=== PATIENT | male | born 1980 | race Caucasian/White ===

== ENCOUNTER 2021-01-28 09:19 | Emergency (ER) | payer OTHER, MEDICAID, SELFPAY ==
[2021-01-28 09:33] VITALS: BP 154/100; PULSE 94; RESP 15; TEMP 36.4; O2SAT 99; BMI 26.7
--- NOTE | 2021-01-28 09:35 | DI.CT.S_ITS ---
PROCEDURE: CT KIDNEY URETER BLADDER (KUB) INDICATIONS: left flank pain TECHNIQUE: Noncontrast 5 mm thick sections acquired from the diaphragms to the symphysis. 5 mm thick coronal and sagittal reformats were then performed. For radiation dose reduction, the following was used: automated exposure control, adjustment of mA and/or kV according to patient size. COMPARISON: None. FINDINGS: Image quality: Excellent. Lung bases: Lung bases are clear. Heart size is normal. Urinary system: There is an obstructing 2 mm stone seen within the left ureteral vesicular junction, as on series 2, image 84 and on series 4 image 37. There is associated moderate left-sided hydroureter and hydronephrosis. Left-sided perinephric fat stranding can be seen. The left kidney appears enlarged. No nonobstructing kidney stones are seen. The right kidney demonstrates normal size. No right-sided hydronephrosis. Both kidneys are normal in size. Bladder wall thickness is normal; no calcified bladder stones. Other solid organs: Liver is normal in size. Gallbladder wall is not thickened. Pancreas is normal in contours. Spleen is normal in size. No adrenal nodules. Peritoneum and bowel: Unenhanced bowel loops demonstrate normal wall thickness and caliber. No free fluid or air. There is a moderate amount of stool seen within the colon. Nodes and vessels: No retroperitoneal or mesenteric adenopathy by size criteria. Aorta and inferior vena cava are normal in caliber. Abdominal wall: No ventral hernias. Pelvis: No free pelvic fluid. No inguinal hernias or adenopathy. Bones: No suspicious bony lesions. No vertebral body compression fractures. IMPRESSION: 2 mm left ureterovesicular junction obstructing stone, with moderate left-sided hydroureter, hydronephrosis, and perinephric fat stranding. The left kidney also appears mildly enlarged. No nonobstructing kidney stones are seen. There is a moderate amount of stool seen within the colon. Please correlate with an underlying history of constipation. Note: Dr. Nielsen was not available to discuss this case at the time of this dictation. Findings relayed to Dr. Nielsen via ER staff, Paulo, at 8:59 a.m. [place] time on January 28, 2021. Dictated by: Arnaldo Shah M.D. on 01/28/2021 at 8:51 Approved by: Belinda BowmanD. on 01/28/2021 at 9:00
--- NOTE | 2021-01-28 09:37 | ED.ABDPAIN ---
HPI - Abdominal Pain General Chief Complaint: Abdominal Pain Stated Complaint: profound pain in left abdomen, started 11pm Time Seen by Provider: 01/28/21 09:22 Source: patient and family History of Present Illness HPI narrative: Patient here with mother. Complaints and onset 11 p.m. left flank left lower abdominal pain with nausea and vomiting. No urinary complaints no hematuria. No chest pain. No neuro complaints. No testicular pain. Pain has been waxing and waning. No pain at this time. No prior history of kidney stone. No prior abdominal surgery Related Data Previous Rx's Medication Instructions Recorded hydrocodone-acetaminophen 1 tab PO Q6H PRN #12 tab 01/28/21 ondansetron 4 mg PO Q8H PRN #10 tab 01/28/21 tamsulosin 0.4 mg PO DAILY #7 cap 01/28/21 Review of Systems Review of Systems Narrative: GENERAL: Denies chills, fatigue, malaise, fever, sweats. HEENT: Denies sinus pain, ear pain, sore throat RESPIRATORY: Denies dyspnea, cough CARDIOVASCULAR: Denies chest pain, palpitations GASTROINTESTINAL: Complains nausea, vomiting, abdominal pain : Denies dysuria, frequency, hematuria MUSCULOSKELETAL: denies muscle or bony pain SKIN: Denies rash, skin lesions NEUROLOGIC: Denies weakness, numbness ROS Unobtainable: All systems reviewed & are unremarkable except as noted in HPI and below Patient History Social History Smoking Status: Never smoker Exam Narrative Exam Narrative: GENERAL: in no distress, not toxic not dyspneic HEAD: Normocephalic. EYES: Pupils equal round No scleral icterus. No injection no discharge ENT: Mucous membranes moist. NECK: Trachea midline. CARDIOVASCULAR: Regular rate and rhythm without murmurs RESPIRATORY: Clear to auscultation. Breath sounds equal bilaterally. No wheezes, rales, or rhonchi. GASTROINTESTINAL: Abdomen soft, non-tender bowel sounds present no peritoneal signs EXTREMITIES: No gross deformities. BACK: No flank tenderness. NEURO: AOx4. SKIN: Warm and dry PSYCH: Not anxious, is cooperative Initial Vital Signs Initial Vital Signs: Vital Signs Temperature 97.6 F 01/28/21 09:33 Pulse Rate 94 H 01/28/21 09:33 Respiratory Rate 15 01/28/21 09:33 Blood Pressure 154/100 H 01/28/21 09:33 Pulse Oximetry 99 01/28/21 09:33 Course Course Course Narrative: No new issues during course of stay. Pain and nausea controlled. Orders Ordered: ED Orders 01/28/21 09:35 CT kidney ureter bladder (KUB) Stat 01/28/21 09:48 Urinalysis and Microscopic Stat 01/28/21 10:00 Complete Blood Count AUTO DIFF Stat Comprehensive Metabolic Panel Stat Sodium Chloride (Normal Saline 0.9%) 1,000 mls @ 1,000 mls/hr IV BOLUS ONE Stop: 01/28/21 11:05 Last Admin: 01/28/21 10:13 Dose: 1,000 mls/hr Documented by: CAROLA Discontinued Medications Ketorolac Tromethamine (Ketorolac 60 Mg/2 Ml Vial) 15 mg IV NOW ONE Stop: 01/28/21 10:03 Last Admin: 01/28/21 10:12 Dose: 15 mg Documented by: CAROLA Ondansetron HCl (Ondansetron 4 Mg/2 Ml Inj) 4 mg IV NOW ONE Stop: 01/28/21 10:07 Last Admin: 01/28/21 10:12 Dose: 4 mg Documented by: CAROLA Tamsulosin HCl (Tamsulosin 0.4 Mg Capsule) 0.4 mg PO NOW ONE Stop: 01/28/21 10:03 Last Admin: 01/28/21 10:12 Dose: 0.4 mg Documented by: CAROLA Reevaluation(s) Reevaluation #1: Blood pressure 133 over radiate. Pain much better. No nausea. Reviewed results with patient. He desires discharge home. Time: 10:33 Vital Signs Vital signs: Vital Signs - 8 hr 01/28/21 09:33 01/28/21 10:30 Temperature 97.6 F Pulse Rate 94 H 67 Respiratory Rate 15 Blood Pressure 154/100 H 133/88 Pulse Oximetry 99 94 MDM - Abdominal Pain Differential Diagnosis Differential diagnosis: Likely calculus of kidney Lab Data Attestation: I reviewed the patient's lab results. Result diagrams: 01/28/21 10:00 01/28/21 10:00 Labs: Lab Results 01/28/21 01/28/21 01/28/21 Range/Units 09:48 10:00 10:00 WBC 11.5 H (4.5-11.0) X10^3/uL RBC 4.32 L (4.5-5.9) X10^6/uL Hgb 13.7 (13.5-17.5) g/dL Hct 40.4 L (41-53) % MCV 93.6 (80-100) fL MCH 31.7 (26-34) PG MCHC 33.9 (30-36) % RDW 12.8 (11.6-14.8) % Plt Count 314 (150-400) X10^3/uL Neut % (Auto) 86.1 H (50-75) % Lymph % (Auto) 7.3 L (25-40) % [place] % (Auto) 6.2 (3-14) % Eos % (Auto) 0.0 L (2-4) % Baso % (Auto) 0.4 (0-2) % Neut # (Auto) 9900 H (7803-0494) /uL Lymph # (Auto) 800 L (8451-6005) /uL [place] # (Auto) 700 (0-900) /uL Eos # (Auto) 0 (0-450) /uL Baso # (Auto) 0 (0-100) /uL Sodium 134 L (137-145) mmol/L Potassium 4.0 (3.4-5.1) mmol/L Chloride 99 (98-107) mmol/L Carbon Dioxide 25 (22-32) mmol/L BUN 17 (9-20) mg/dL Creatinine 1.06 (0.66-1.25) mg/dL Estimated GFR > 60.0 (>60) mL/min BUN/Creatinine Ratio 16.0 (6-22) Glucose 137 H (70-100) mg/dL Calcium 10.4 H (8.4-10.2) mg/dL Total Bilirubin 0.6 (0.2-1.3) mg/dL AST 35 (17-59) IU/L ALT 34 (<50) IU/L Alkaline Phosphatase 45 (38-126) U/L Total Protein 8.0 (6.3-8.2) g/dL Albumin 5.0 (3.5-5.0) g/dL Globulin 3.0 (1.7-4.1) g/dL Albumin/Globulin Ratio 1.7 (1.0-2.8) Urine Color Yellow Urine Appearance Clear Urine pH 7.0 (4.5-8.0) Ur Specific [place] 1.025 (1.000-1.035) Urine Protein Trace H (Negative) Urine Glucose (UA) Negative (Negative) g/dL Urine Ketones Trace H (NEGATIVE) Urine Occult Blood 2+ H (Negative) Urine Nitrate Negative (Negative) Urine Bilirubin Negative (NEGATIVE) Urine Urobilinogen 0.2 (0.2) E.U./dL Ur Leukocyte Esterase Negative (NEGATIVE) Urine RBC 5-10/hpf H (0-5/HPF) Urine WBC 0-1/hpf (0-5/HPF) Ur Squamous Epith Cells 0-1 /hpf (0-5/HPF) Amorphous Sediment 1+ Urine Bacteria None seen (None) Urine Mucus 1+ H (Negative) Ur Culture Indicated? Cult not indicated Imaging Data CT scan - abdomen/pelvis: Radiologist's Impression: [address] [id number] Scan ReportSigned Patient: López Pichardo WMR#: [id number]: [id number]:[id number]/Sex: 40 / MDate of Service: 01/28/21Loc: EDAccession Number: [id number] Procedure: CT kidney ureter bladder (KUB) Ordering Provider: Teto Nielsen MD PROCEDURE: CT KIDNEY URETER BLADDER (KUB) INDICATIONS: left flank pain TECHNIQUE: Noncontrast 5 mm thick sections acquired from the diaphragms to the symphysis. 5 mm thick coronal and sagittal reformats were then performed. For radiation dose reduction, the following was used: automated exposure control, adjustment of mA and/or kV according to patient size. COMPARISON: None. FINDINGS: Image quality: Excellent. Lung bases: Lung bases are clear. Heart size is normal. Urinary system: There is an obstructing 2 mm stone seen within the left ureteral vesicular junction, as on series 2, image 84 and on series 4 image 37. There is associated moderate left-sided hydroureter and hydronephrosis. Left-sided perinephric fat stranding can be seen. The left kidney appears enlarged. No nonobstructing kidney stones are seen. The right kidney demonstrates normal size. No right-sided hydronephrosis. Both kidneys are normal in size. Bladder wall thickness is normal; no calcified bladder stones. Other solid organs: Liver is normal in size. Gallbladder wall is not thickened. Pancreas is normal in contours. Spleen is normal in size. No adrenal nodules. Peritoneum and bowel: Unenhanced bowel loops demonstrate normal wall thickness and caliber. No free fluid or air. There is a moderate amount of stool seen within the colon. Nodes and vessels: No retroperitoneal or mesenteric adenopathy by size criteria. Aorta and inferior vena cava are normal in caliber. Abdominal wall: No ventral hernias. Pelvis: No free pelvic fluid. No inguinal hernias or adenopathy. Bones: No suspicious bony lesions. No vertebral body compression fractures. IMPRESSION: 2 mm left ureterovesicular junction obstructing stone, with moderate left-sided hydroureter, hydronephrosis, and perinephric fat stranding. The left kidney also appears mildly enlarged. No nonobstructing kidney stones are seen. There is a moderate amount of stool seen within the colon. Please correlate with an underlying history of constipation. Note: Dr. Nielsen was not available to discuss this case at the time of this dictation. Findings relayed to Dr. Nielsen via ER staff, Paulo, at 8:59 a.m. [place] time on January 28, 2021. Dictated by: Arnaldo Shah M.D. on 01/28/2021 at 8:51 Approved by: Arnaldo Shah M.D. on 01/28/2021 at 9:00 MDM Narrative Medical decision making narrative: Appropriate for discharge home. Nausea and pain control. Patient and family agree with treatment plan and discharged home. Discharge Plan Departure Patient Disposition: Home Clinical Impression: Left ureteral calculus Instructions: DI for Kidney Stones Activity Restrictions/Additional Instructions: Keep well hydrated. Return if worse if any questions or concerns. Call provided urology office tomorrow for office recheck this week. Also see family doctor for recheck of your blood pressure this week. Filter urine for stone to bring to the office Prescriptions: New hydrocodone-acetaminophen 5-325 mg tablet 1 tab PO Q6H PRN (Reason: pain) Qty: 12 RF: 0 tamsulosin 0.4 mg capsule 0.4 mg PO DAILY Qty: 7 RF: 0 ondansetron 4 mg tablet,disintegrating 4 mg PO Q8H PRN (Reason: nausea and vomiting) Qty: 10 RF: 0 Referrals: Madi Elizabeth MD [Non-Staff] -
[2021-01-28 09:58] LABS: Bacteria Urine None Seen
[2021-01-28 10:07] LABS: Add Manual Diff / Slide Review NO; Basophils Absolute Auto 0 /uL (0-100); Basophils Percent Auto 0.4 % (0-2); Eosinophils Absolute Auto 0 /uL (0-450); Hematocrit 40.4 % (41-53); Hemoglobin 13.7 g/dL (13.5-17.5); Lymphocytes Absolute Auto 800 /uL (1100-4500); Lymphocytes Percent Auto 7.3 % (25-40); Mean Corpuscular HGB Conc 33.9 % (30-36); Mean Corpuscular Hemoglobin 31.7 PG (26-34); Mean Corpuscular Volume 93.6 fL (80-100); Monocytes Absolute Auto 700 /uL (0-900); Monocytes Percent Auto 6.2 % (3-14); Neutrophils Absolute Auto 9900 /uL (1500-7000); Neutrophils Percent Auto 86.1 % (50-75); Platelet Count 314 X10^3/uL (150-400); Red Blood Cell Count 4.32 X10^6/uL (4.5-5.9); Red Cell Distribution Width 12.8 % (11.6-14.8); White Blood Cell Count 11.5 X10^3/uL (4.5-11.0)
[2021-01-28 10:10] LABS: Appearance Urine UA CLEAR; Bilirubin Urine UA NEGATIVE (NEGATIVE); Color Urine UA YELLOW; Glucose Urine UA NEGATIVE (Negative); Ketones Urine UA TRACE (NEGATIVE); Leukocyte Esterase Urine UA NEGATIVE (NEGATIVE); Nitrite Urine UA NEGATIVE (Negative); Occult Blood Urine UA 2+ (Negative); Protein Urine UA TRACE (Negative); Specific Gravity Urine UA 1.025 (1.000-1.035); Urobilinogen Urine UA 0.2 E.U./dL (0.2)
[2021-01-28] MEDS: ONDANSETRON 4 MG/2 ML INJ IV (10:12)
[2021-01-28] MEDS: KETOROLAC 60 MG/2 ML VIAL 15 MG IV (10:12)
[2021-01-28] MEDS: TAMSULOSIN 0.4 MG CAPSULE PO (10:12)
[2021-01-28] MEDS: SODIUM CHLORIDE 0.9% 1,000 ML 1000 ML IV (10:13)
[2021-01-28 10:18] LABS: Alanine Aminotransferase 34 IU/L (<50); Albumin Globulin Ratio 1.7 (1.0-2.8); Alkaline Phosphatase 45 U/L (38-126); Aspartate Aminotransferase 35 IU/L (17-59); Bilirubin Total 0.6 mg/dL (0.2-1.3); Blood Urea Nitrogen 17 mg/dL (9-20); Calcium 10.4 mg/dL (8.4-10.2); Carbon Dioxide 25 mmol/L (22-32); Chloride 99 mmol/L (98-107); Estimated Glomerular Filt Rate > 60.0 mL/min (>60); Glucose 137 mg/dL (70-100); HEMOLYSIS < 15 (0-50); Sodium 134 mmol/L (137-145)
[2021-01-28 10:30] VITALS: BP 133/88; PULSE 67; O2SAT 94
[2021-01-28 10:30] LABS: Amorphous Sediment Urine 1+; Mucus Urine 1+ (Negative); RBC Urine 5-10/HPF (0-5/HPF); Squamous Epithelial Cell Urine 0-1 /HPF (0-5/HPF); WBC Urine 0-1/HPF (0-5/HPF)
[2021-01-28 10:31] LABS: Culture Indicated Urine Cult Not Indicated
[2021-01-28 10:57] VITALS: BP 133/88; PULSE 78; RESP 15; O2SAT 99
== END 2021-01-28 11:07 | disposition home or self-care (01) ==
PROVIDERS: Emergency Provider Emergency Medicine
DX: N20.1 Calculus of ureter (principal); R11.2 Nausea with vomiting, unspecified
CPT/HCPCS: 36415; 74176; 80053; 81001; 85025; 96361; 96374; 96375; 99284; J1885; J2405